=== PATIENT | male | born 1970 | race Caucasian/White ===

== ENCOUNTER → 2020-06-06 13:48 | Outpatient (BNVA) | payer OTHER, SELFPAY | PROVIDERS: PCP Internal Medicine; Referring Provider Internal Medicine; Visit Provider Internal Medicine Pulmonary Disease | DX: J45.30 Mild persistent asthma, uncomplicated (principal); Z91.09 Other allergy status, other than to drugs and biological substances | CPT/HCPCS: Q3014 ==

== ENCOUNTER → 2020-11-01 15:29 | Outpatient (BNVA) | payer OTHER, SELFPAY | PROVIDERS: PCP Internal Medicine; Visit Provider Internal Medicine Pulmonary Disease | DX: J45.30 Mild persistent asthma, uncomplicated (principal); Z91.09 Other allergy status, other than to drugs and biological substances | CPT/HCPCS: Q3014 ==

== ENCOUNTER → 2021-11-14 13:29 | Outpatient (BNVA) | payer OTHER, SELFPAY | PROVIDERS: PCP Internal Medicine; Visit Provider Internal Medicine Pulmonary Disease | DX: J45.30 Mild persistent asthma, uncomplicated (principal); Z91.09 Other allergy status, other than to drugs and biological substances | CPT/HCPCS: 99212 ==

== ENCOUNTER 2023-03-04 14:24 | Outpatient (AMB) | payer OTHER, SELFPAY ==
--- NOTE | 2023-03-04 14:27 | A.OFFVIS_ITS ---
Intake Vital Signs 03/04/23 14:28 Height 5 ft 8 in Weight 156 lb 8.451 oz BMI 23.8 BP 140/80 H Blood Pressure Location Rt brachial Position Sitting Pulse 112 H Pulse Source Doppler Pulse Oximetry (%) 96 Oxygen Delivery Method Room Air Intake Visit Reasons: copd Allergies No Known Allergies Allergy (Verified 03/04/23 14:31) HPI copd HPI Details 52-year-old gentleman, former 25 pack year smoker, quit 2011, followed for allergic [id number] persistent asthma.? He has been using Breo 100, Singulair, and albuterol MDI with excellent control of his underlying symptoms. He denies any recent asthma exacerbations.? He continues and Singulair with good control of his underlying allergies.? No significant changes since his prior visit. [facility] Social History (Updated 03/04/23 @ 14:30 by Blaire Rajan [facility]) Patient Tobacco Use Status: Former Tobacco user Review of Systems Const Denies daytime sleepiness, Denies excessive sweating, Denies fatigue, Denies fever(s), Denies lethargy, Denies malaise, Denies night sweats, Denies snoring and Denies weight loss Eyes Denies blurry vision and Denies itchy eyes ENT Denies nasal congestion, Denies post nasal drip, Denies sinus pain, Denies sinus pressure and Denies other ( Thrush) Card Denies chest pain, Denies pedal edema, Denies dyspnea, Denies orthopnea and Denies paroxysmal nocturnal dyspnea Resp Denies cough, Denies hemoptysis, Denies excessive phlegm production, Denies dyspnea, Denies snoring and Denies wheezing GI Denies abdominal pain and Denies heartburn Musc Denies myalgias, Denies arthralgias and Denies joint swelling Skin/Breast Denies rash Neuro Denies memory loss and Denies seizure-like activity Psych Denies abnormal sleep pattern, Denies anxiety and Denies memory loss Endo Denies excessive sweating, Denies fatigue and Denies heat intolerance Allan/Lymph Denies easy bruising Aller/Immun Denies itchy eyes, Denies seasonal rhinorrhea and Denies wheezing Physical Exam Vital Signs: Last Vital Signs Pulse 112 H 03/04/23 14:28 BP 140/80 H 03/04/23 14:28 Pulse Ox 96 03/04/23 14:28 Oxygen Delivery Method Room Air 03/04/23 14:28 BMI result Body Mass Index 23.8 Const General: no acute distress and alert Nutritional Appearance: not obese Orientation/consciousness: Other orientation findings ( oriented) HEENT Head: Yes atraumatic Eyes General: appearance normal, both eyes and all related structures Sclerae: sclerae normal EOM: EOMs intact bilaterally Neck Neck: Yes supple Lymphatic: no lymphadenopathy noted Resp Effort & Inspection: normal respiratory effort and no use of accessory muscles Auscultation: clear to auscultation bilaterally Cardio Rate: regular rate Rhythm: regular rhythm Heart sounds: no gallops, no murmurs and no rubs Skin General skin exam: other ( warm) Extrem General: No clubbing, No cyanosis and No edema Assessment & Plan Assessment & Plan (1) Mild persistent asthma: Code(s): J45.30 - Mild persistent asthma, uncomplicated Plan: Well controlled on current regimen of Breo and albuterol MDI. Continue current regimen. (2) Environmental allergies: Code(s): Z91.09 - Other allergy status, other than to drugs and biological substances Plan: Well controlled on Singulair. Continue current regimen. Medications: Refilled Breo Ellipta 100-25 mcg/dose (fluticasone furoate-vilanterol) 1 ea PO DAILY 180 ea 4RF NS Coding Level of Care Code Est Pt Level 4 (55401) Diagnoses Mild persistent asthma J45.30 Environmental allergies Z91.09
[2023-03-04 14:28] VITALS: BP 140/80; PULSE 112; O2SAT 96; BMI 23.8
== END 2023-03-04 14:59 | disposition home or self-care (01) ==
PROVIDERS: PCP Internal Medicine; Visit Provider Internal Medicine Pulmonary Disease
DX: J45.30 Mild persistent asthma, uncomplicated (principal); Z91.09 Other allergy status, other than to drugs and biological substances
CPT/HCPCS: 99214

== ENCOUNTER → 2023-03-04 14:24 | Outpatient (BNVA) | payer OTHER, SELFPAY | PROVIDERS: PCP Internal Medicine; Visit Provider Internal Medicine Pulmonary Disease | DX: J45.30 Mild persistent asthma, uncomplicated (principal); Z79.899 Other long term (current) drug therapy; Z91.09 Other allergy status, other than to drugs and biological substances | CPT/HCPCS: 99212 ==

== ENCOUNTER 2024-02-11 10:48 | Outpatient (AMB) | payer OTHER, SELFPAY ==
[2024-02-11 10:52] VITALS: BP 158/78; PULSE 108; O2SAT 96; BMI 23.5
--- NOTE | 2024-02-11 10:52 | MHC.OFFVIS ---
Vital Signs 02/11/24 10:52 Height 5 ft 8 in Weight 154 lb 5.177 oz BMI 23.5 BP 158/78 H Blood Pressure Location Lt brachial Position Sitting Pulse 108 H Pulse Source Doppler Pulse Oximetry (%) 96 Oxygen Delivery Method Nasal Cannula Intake Visit Reasons: copd Allergies No Known Allergies Allergy (Verified 03/04/23 14:31) HPI HPI copd: Details: 53-year-old gentleman, former 25 pack year smoker, quit 2011, followed for allergic [id number] persistent asthma and allergies.? He has been using Breo 100, Singulair, and albuterol MDI with excellent control of his underlying symptoms. He denies any recent asthma exacerbations.? COUNTS INCLUDE 234 BEDS AT THE [facility] Social History (Updated 03/04/23 @ 14:30 by Blaire Rajan [facility]) Patient Tobacco Use Status: Former Tobacco user Review of Systems Const Denies daytime sleepiness, Denies excessive sweating, Denies fatigue, Denies fever(s), Denies lethargy, Denies malaise, Denies night sweats, Denies snoring and Denies weight loss Eyes Denies blurry vision and Denies itchy eyes ENT Denies nasal congestion, Denies post nasal drip, Denies sinus pain, Denies sinus pressure and Denies other ( Thrush) Card Denies chest pain, Denies pedal edema, Denies dyspnea, Denies orthopnea and Denies paroxysmal nocturnal dyspnea Resp Denies cough, Denies hemoptysis, Denies excessive phlegm production, Denies dyspnea, Denies snoring and Denies wheezing GI Denies abdominal pain and Denies heartburn Musc Denies myalgias, Denies arthralgias and Denies joint swelling Skin/Breast Denies rash Neuro Denies memory loss and Denies seizure-like activity Psych Denies abnormal sleep pattern, Denies anxiety and Denies memory loss Endo Denies excessive sweating, Denies fatigue and Denies heat intolerance Allan/Lymph Denies easy bruising Aller/Immun Denies itchy eyes, Denies seasonal rhinorrhea and Denies wheezing Physical Exam Vital Signs: Last Vital Signs Pulse 108 H 02/11/24 10:52 BP 158/78 H 02/11/24 10:52 Pulse Ox 96 02/11/24 10:52 Oxygen Delivery Method Nasal Cannula 02/11/24 10:52 BMI result Body Mass Index 23.5 Const General: no acute distress and alert Nutritional Appearance: not obese Orientation/consciousness: Other orientation findings ( oriented) HEENT Head: Yes atraumatic Eyes General: appearance normal, both eyes and all related structures Sclerae: sclerae normal EOM: EOMs intact bilaterally Neck Neck: Yes supple Lymphatic: no lymphadenopathy noted Resp Effort & Inspection: normal respiratory effort and no use of accessory muscles Auscultation: clear to auscultation bilaterally Cardio Rate: regular rate Rhythm: regular rhythm Heart sounds: no gallops, no murmurs and no rubs Skin General skin exam: other ( warm) Extrem General: No clubbing, No cyanosis and No edema Assessment & Plan Assessment & Plan (1) Mild persistent asthma: Code(s): J45.30 - Mild persistent asthma, uncomplicated Category: Medical Plan: Well controlled on Breo and albuterol MDI. Continue current regimen. (2) Environmental allergies: Code(s): Z91.09 - Other allergy status, other than to drugs and biological substances Category: Medical Plan: Well controlled on Singulair. Continue current regimen. Coding Level of Care Code Est Pt Level 4 (61744) Diagnoses Mild persistent asthma J45.30 Environmental allergies Z91.09
== END 2024-02-11 11:02 | disposition home or self-care (01) ==
PROVIDERS: PCP Internal Medicine; Visit Provider Internal Medicine Pulmonary Disease
DX: J45.30 Mild persistent asthma, uncomplicated (principal); Z91.09 Other allergy status, other than to drugs and biological substances
CPT/HCPCS: 99214

== ENCOUNTER → 2024-02-11 10:48 | Outpatient (BNVA) | payer OTHER, SELFPAY | PROVIDERS: PCP Internal Medicine; Visit Provider Internal Medicine Pulmonary Disease | DX: J44.9 Chronic obstructive pulmonary disease, unspecified (principal); J45.30 Mild persistent asthma, uncomplicated; Z91.09 Other allergy status, other than to drugs and biological substances; Z87.891 Personal history of nicotine dependence | CPT/HCPCS: 99212 ==

== ENCOUNTER 2025-01-19 12:53 | Outpatient (AMB) | payer OTHER, SELFPAY ==
--- NOTE | 2025-01-19 13:04 | A.OFFVIS_ITS ---
Vital Signs 01/19/25 13:05 Height 5 ft 8 in Weight 157 lb BMI 23.9 BP 128/62 Blood Pressure Location Lt brachial Position Sitting Pulse 103 H Pulse Source Pulse Oximeter Pulse Oximetry (%) 95 Oxygen Delivery Method Room Air Intake Visit Reasons: Asthma Allergies No Known Allergies Allergy (Verified 01/19/25 13:07) HPI HPI Asthma: Details: 54-year-old gentleman, former 25 pack year smoker, quit 2011, followed for allergic ezek-[id number] persistent asthma and allergies.? He has been using Breo 100 and albuterol MDI with excellent control of his underlying asthma symptoms. His environmental allergy symptoms are well controlled on Zyrtec. He denies any recent asthma exacerbations.? [facility] Social History (Updated 03/04/23 @ 14:30 by Blaire Rajan [facility]) Patient Tobacco Use Status: Former Tobacco user Review of Systems Const Denies daytime sleepiness, Denies excessive sweating, Denies fatigue, Denies fever(s), Denies lethargy, Denies malaise, Denies night sweats, Denies snoring and Denies weight loss Eyes Denies blurry vision and Denies itchy eyes ENT Denies nasal congestion, Denies post nasal drip, Denies sinus pain, Denies sinus pressure and Denies other ( Thrush) Card Denies chest pain, Denies pedal edema, Denies dyspnea, Denies orthopnea and Denies paroxysmal nocturnal dyspnea Resp Denies cough, Denies hemoptysis, Denies excessive phlegm production, Denies dyspnea, Denies snoring and Denies wheezing GI Denies abdominal pain and Denies heartburn Musc Denies myalgias, Denies arthralgias and Denies joint swelling Skin/Breast Denies rash Neuro Denies memory loss and Denies seizure-like activity Psych Denies abnormal sleep pattern, Denies anxiety and Denies memory loss Endo Denies excessive sweating, Denies fatigue and Denies heat intolerance Allan/Lymph Denies easy bruising Aller/Immun Denies itchy eyes, Denies seasonal rhinorrhea and Denies wheezing Physical Exam Vital Signs: Last Vital Signs Pulse 103 H 01/19/25 13:05 BP 128/62 01/19/25 13:05 Pulse Ox 95 01/19/25 13:05 Oxygen Delivery Method Room Air 01/19/25 13:05 BMI result Body Mass Index 23.9 Const General: no acute distress and alert Nutritional Appearance: not obese Orientation/consciousness: Other orientation findings ( oriented) HEENT Head: Yes atraumatic Eyes General: appearance normal, both eyes and all related structures Sclerae: sclerae normal EOM: EOMs intact bilaterally Neck Neck: Yes supple Lymphatic: no lymphadenopathy noted Resp Effort & Inspection: normal respiratory effort and no use of accessory muscles Auscultation: clear to auscultation bilaterally Cardio Rate: regular rate Rhythm: regular rhythm Heart sounds: no gallops, no murmurs and no rubs Skin General skin exam: other ( warm) Extrem General: No clubbing, No cyanosis and No edema Assessment & Plan Assessment & Plan (1) Mild persistent asthma: Code(s): J45.30 - Mild persistent asthma, uncomplicated Category: Medical Plan: Well controlled on Breo and albuterol MDI. Continue current regimen. (2) Environmental allergies: Code(s): Z91.09 - Other allergy status, other than to drugs and biological substances Category: Medical Plan: Well controlled on Zyrtec. Continue current regimen. Coding Level of Care Code Est Pt Level 4 (31961) Diagnoses Mild persistent asthma J45.30 Environmental allergies Z91.09
[2025-01-19 13:05] VITALS: BP 128/62; PULSE 103; O2SAT 95; BMI 23.9
--- OUTSIDE RECORDS SUMMARY | 2025-01-19 13:05 | XMS_ITS | Clinical Summary ---
Author Organization [facility] Address [address] [place] [address] Care Team Providers Care Mushroom Cultivator Name Role Phone Tia Townsend MD Primary Care Provide r Allergies No known active allergies Medications Medication Sig Dispensed Refills Start Date End Date Status metFORMIN (GLUCOPHAGE) tablet 500 mg Take 1 tablet (500 mg total) by mouth 2 (two) times a day with meals. 0 Active montelukast (SINGULAIR) 10 MG tablet Take 1 tablet (10 mg total) by mouth every night at bedtime. 0 Active fluticasone-vilanterol (BREO ELLIPTA) 100-25 MCG/INH inhaler 1 inhalation. by Inhaled route daily. 0 Active folic acid (FOLVITE) tablet 1 mg Take 1 tablet (1 mg total) by mouth daily. 0 Active vitamin B-12 (CYANOCOBALAMIN) 500 MCG tablet Take 2 tablets (1,000 mcg total) by mouth daily. 0 Active pravastatin (PRAVACHOL) tablet 80 mg Take 1 tablet (80 mg total) by mouth daily. 0 Active Active Problems No known active problems Social History Tobacco Use Types Packs/Day Years Used Date Smoking Tobacco: Former Smokeless Tobacco: Never Alcohol Use Standard Drinks/Week Comments No 0 (1 standard drink = 0.6 oz pur e alcohol) Sex and Gender Information Value Date Recorded Sex Assigned at Not on file Gender Identity Not on file Sexual Orientation Not on file Job Start Date Occupation Industry Not on file Not on file Not on file Last Filed Vital Signs Vital Sign Reading Time Taken Comments Blood Pressure 148/77 01/05/2024 11:33 AM EDT Pulse 92 01/05/2024 11:33 AM EDT Temperature 36.3 C (97.4 F) 01/05/2024 11:33 AM EDT Respiratory Rate - - Oxygen Saturation 98% 01/05/2024 11:33 AM EDT Inhaled Oxygen Concentration - - Weight 72.8 kg (160 lb 9.6 oz) 01/05/2024 11:33 AM EDT Height 170.2 cm (5' 7 ) 06/17/2023 1:34 PM EST Body Mass Index 25.15 06/17/2023 1:34 PM EST Plan of Treatment Health Maintenance Due Date Last Done Comments Hepatitis B Vaccines (1 of 3 - 3-dose series) 1968 Hepatitis C Screening 1968 COVID-19 Vaccine (#1) 1968 Depression Screening 1980 Preventative Health Evaluation 1986 Colon Cancer Screening (Colonoscopy) 2013 DTap / Tdap / Td (2 - Td or Tdap) 05/27/2022 05/27/2012 Influenza Vaccine (#1) 2025 , 05/10/2021, 05/29/2020, Additional history exists Pneumococcal Vaccine (4 of 4 - PPSV23 or PCV20) 2033 08/02/2019, 12/10/2017, 09/22/2016 Shingrix-Zoster Vaccine Completed 02/08/2021, 11/05 RSV Ped < 20 months Aged Out No longe r eligible based on patient's age to complete this topic Care Teams Mushroom Cultivator Relationship Specialty Start Date End Date Tia Townsend MD PCP - General Internal Medicine 07/19/19
--- OUTSIDE RECORDS SUMMARY | 2025-01-19 13:05 | XMS_ITS | Clinical Summary ---
Author Organization [facility] Address [address] [place] [address] Phone Care Team Providers Care Horse And Wagon Driver Name Role Phone Tia Townsend MD Primary Care Provider Allergies No known active allergies Medications cyanocobalamin (VITAMIN B-12) 500 mcg tablet Take 2 tablets (1,000 mcg total) by mouth daily. Active fluticasone furoate-vilante roL (BREO ELLIPTA) 100-25 mcg/dose inhaler 1 inhalation by Inhaled route daily. Active folic acid (FOLVITE) 1 mg tablet Take 1 tablet (1 mg total) by mouth daily. 7 Active montelukast (SINGULAIR) 10 mg tablet Take 1 tablet (10 mg total) by mouth every night at bedtime. Active Jardiance 10 mg tablet Take 1 tablet (10 mg total) by mouth 1 (one) time each day in the morning. 5 Active rosuvastatin (CRESTOR) 10 mg tablet Take 1 tablet (10 mg total) by mouth 1 (one) time each day. 5 Active Active Problems Problem Noted Date Diagnosed Date CML (chronic myelocytic leuk emia) (CMS/HCC V24, CMS/[facility] V28) 05/16/2024 Surgical History Surgery Date Site/Laterality Comments FINGER SURGERY PROCEDURE:FINGER SURGERY OTHER SURGICAL HISTORY PROCEDURE:TOOTH EXTRACTION Medical History Medical History Date Comments Leukemia (CMS/HCC V24, CMS/[facility] V28) DX:Leukemia (HCC) Anxiety DX:Anxiety Diabetes mellitus (CMS/HCC V24, CMS/[facility] V28) DX:Diabetes mellitus (HCC) Hyperlipidemia DX:Hyperlipidemi a Leukocytosis DX:Leukocytosis Thrombocytosis DX:Thrombocytosi s Social History Tobacco Use Types Packs/Day Years Used Date Smoking Tobacco: Former Smokeless Tobacco: Never Tobacco Cessation:Counseling Given: Not Answered Alcohol Use Standard Drinks/Week Comments No 0 (1 standard drink = 0.6 oz pur e alcohol) Sex and Gender Information Value Date Recorded Sex Assigned at Not on file Legal Sex Male 11:45 AM EST Gender Identity Not on file Sexual Orientation Not on file Obstetrics History Last Filed Vital Signs Vital Sign Reading Time Taken Comments Blood Pressure 148/75 08/11/2024 11:17 AM EST Pulse 103 08/11/2024 11:17 AM EST Temperature 37.4 C (99.3 F) 08/11/2024 11:17 AM EST Respiratory Rate - - Oxygen Saturation 97% 08/11/2024 11:17 AM EST Inhaled Oxygen Concentration - - Weight 68 kg (150 lb) 08/11/2024 11:17 AM EST Height 170.2 cm (5' 7 ) 06/17/2023 1:34 PM EST Body Mass Index 23.49 06/17/2023 1:34 PM EST Plan of Treatment Upcoming Encounters Date Type Department Care Team (Late st Contact Info) Description 05/03/2025 11:00 AM EST Office Visit [facility] Hematology Oncology [address] [place] [id number] Carlos Maria MD [address] [place] [address] Health Maintenance Due Date Last Done Comments Diabetes: Annual GFR (Glomerular Filtration Rate) 1968 Diabetes: Annual Foot Exam 1978 Diabetes: Annual Retina Eye Exam 1978 Hepatitis B Vaccines (1 of 3 - 19+ 3-dose series) 1987 Cholesterol Screening (Lipid Panel) 06/05/2022 Colorectal Cancer Screening: Colonoscopy 06/05/2022 HIV Screening 06/05/2022 Hepatitis C Screening 06/05/2022 Social Influencers of Health Screening 06/05/2022 COVID-19 Vaccine ( season) 2024 04/12/2022, 11/14/2021, 05/29/2021, Additional history exists Depression Screening 06/29/2024 Diabetes: Annual Urine Albumin-Creatinine Ratio (uACR) 07/21/2024 Diabetes: Blood Sugar Control Test (HGBA1C) 07/21/2024 Pneumococcal Vaccine: 50+ Years (4 of 4 - PCV20 or PCV21) 08/02/2024 08/02/2019, 12/10/2017, 09/22/2016 Influenza Vaccine (#1) 2025 3, 04/10/2022, 05/10/2021, Additional history exists DTaP,Tdap,and Td Vaccines (4 - Td or Tdap) 10/22/2033 10/23/2023, 05/27/2012, 05/27/2012 Zoster Vaccines Completed 02/08/2021, 11/05/2020 HIB Vaccines Aged Out No longer eligi ble based on patient's age to complete this topic HPV Vaccines Aged Out No longer eligi ble based on patient's age to complete this topic Hepatitis A Vaccines Aged Out No long er eligible based on patient's age to complete this topic IPV Vaccines Aged Out No longer eligi ble based on patient's age to complete this topic MMR Vaccines Aged Out No longer eligi ble based on patient's age to complete this topic Meningococcal ACWY Vaccine Aged Out N o longer eligible based on patient's age to complete this topic Meningococcal B Vaccine Aged Out No l onger eligible based on patient's age to complete this topic RSV Immunization Patients Under 20 months Aged Out No longer eligible based on patient's age to complete this topic Varicella Vaccines Aged Out No longer eligible based on patient's age to complete this topic Insurance [facility] Care Teams Horse And Wagon Driver Relationship Specialty Start Date End Date Tia Townsend MD [address] [place] [address] PCP - General Internal Medicine 05/01/18
== END 2025-01-19 13:36 | disposition home or self-care (01) ==
LOC: HO.HPS 12:54
PROVIDERS: PCP Internal Medicine; Visit Provider Internal Medicine Pulmonary Disease
DX: J45.30 Mild persistent asthma, uncomplicated (principal); Z91.09 Other allergy status, other than to drugs and biological substances
CPT/HCPCS: 99214

== ENCOUNTER → 2025-01-19 12:53 | Outpatient (BNVA) | payer OTHER, SELFPAY | PROVIDERS: PCP Internal Medicine; Visit Provider Internal Medicine Pulmonary Disease | DX: J45.30 Mild persistent asthma, uncomplicated (principal); Z91.09 Other allergy status, other than to drugs and biological substances | CPT/HCPCS: 99212 ==

== ENCOUNTER 2025-06-15 10:58 | Outpatient (AMB) | payer OTHER, SELFPAY ==
[2025-06-15 11:00] VITALS: BP 118/64; PULSE 111; O2SAT 94; BMI 23.1
--- NOTE | 2025-06-15 11:00 | MHC.OFFVIS ---
Vital Signs 06/15/25 11:00 Height 5 ft 8 in Weight 152 lb BMI 23.1 BP 118/64 Blood Pressure Location Lt brachial Position Sitting Pulse 111 H Pulse Source Pulse Oximeter Pulse Oximetry (%) 94 Oxygen Delivery Method Room Air Intake Visit Reasons: shortness of breath with exertion Allergies prednisone Adverse Reaction (Intermediate, Verified 06/15/25 11:34) feet swelling HPI HPI shortness of breath with exertion: Details: 54-year-old gentleman, former 25 pack year smoker, quit 2011, followed for allergic peoe-tc-roerzsar persistent asthma and allergies.? He has been using Breo 100 and albuterol MDI with excellent control of his underlying asthma symptoms. His environmental allergy symptoms are well controlled on Zyrtec at baseline. Over the last months patient had developed what appears to be pneumonia with only partial response to an initial course of Levaquin. [facility] Social History (Updated 03/04/23 @ 14:30 by Blaire Rajan [facility]) Patient Tobacco Use Status: Former Tobacco user Review of Systems Const Denies daytime sleepiness, Denies excessive sweating, Denies fatigue, Denies fever(s), Denies lethargy, Denies malaise, Denies night sweats, Denies snoring and Denies weight loss Eyes Denies blurry vision and Denies itchy eyes ENT Denies nasal congestion, Denies post nasal drip, Denies sinus pain, Denies sinus pressure and Denies other ( Thrush) Card Denies chest pain, Denies pedal edema, Denies dyspnea, Reports dyspnea on exertion, Denies orthopnea and Denies paroxysmal nocturnal dyspnea Resp Denies cough, Denies hemoptysis, Denies excessive phlegm production, Denies dyspnea, Reports dyspnea on exertion, Denies snoring and Denies wheezing GI Denies abdominal pain and Denies heartburn Musc Denies myalgias, Denies arthralgias and Denies joint swelling Skin/Breast Denies rash Neuro Denies memory loss and Denies seizure-like activity Psych Denies abnormal sleep pattern, Denies anxiety and Denies memory loss Endo Denies excessive sweating, Denies fatigue and Denies heat intolerance Allan/Lymph Denies easy bruising Aller/Immun Denies itchy eyes, Denies seasonal rhinorrhea and Denies wheezing Physical Exam Vital Signs: Last Vital Signs Pulse 111 H 06/15/25 11:00 BP 118/64 06/15/25 11:00 Pulse Ox 94 06/15/25 11:00 Oxygen Delivery Method Room Air 06/15/25 11:00 BMI result Body Mass Index 23.1 Const General: no acute distress and alert Nutritional Appearance: not obese Orientation/consciousness: Other orientation findings ( oriented) HEENT Head: Yes atraumatic Eyes General: appearance normal, both eyes and all related structures Sclerae: sclerae normal EOM: EOMs intact bilaterally Neck Neck: Yes supple Lymphatic: no lymphadenopathy noted Resp Effort & Inspection: normal respiratory effort and no use of accessory muscles Auscultation: clear to auscultation bilaterally Cardio Rate: regular rate Rhythm: regular rhythm Heart sounds: no gallops, no murmurs and no rubs Skin General skin exam: other ( warm) Extrem General: No clubbing, No cyanosis and No edema Assessment & Plan Assessment & Plan (1) Mild persistent asthma: Code(s): J45.30 - Mild persistent asthma, uncomplicated Category: Medical Plan: Baseline controlled on Breo and albuterol MDI. Continue current regimen. (2) Environmental allergies: Code(s): Z91.09 - Other allergy status, other than to drugs and biological substances Category: Medical Plan: Baseline controlled on Zyrtec and Singulair. Continue current regimen. (3) Pneumonia: Code(s): J18.9 - Pneumonia, unspecified organism Category: Medical Plan: Community-acquired pneumonia with partial response to initial course of Levaquin, will repeat course of Levaquin. Medications: Refilled levofloxacin 750 mg PO DAILY 7 tabs 0RF Coding Level of Care Code Est Pt Level 4 (59497) Add On Problem Visit Only Diagnoses Mild persistent asthma J45.30 Environmental allergies Z91.09 Pneumonia J18.9
--- OUTSIDE RECORDS SUMMARY | 2025-06-15 14:17 | XMS_ITS | Clinical Summary ---
Author Organization [facility] Prior to 11/26/24 Address [address] [place] [address] Care Team Providers Care Life Skills Coordinator Name Role Phone Tia Townsend MD Primary [...] age to complete this topic Care Teams Life Skills Coordinator Relationship Specialty Start Date End Date Tia Townsend MD PCP - General Internal Medicine 07/19/19
--- OUTSIDE RECORDS SUMMARY | 2025-06-15 14:17 | XMS_ITS | Clinical Summary ---
Author Organization [facility] Address [address] [place] [address] Phone Care Team Providers Care Pit Clerk Name Role Phone Tia Townsend MD Primary Care Provider + [phone] Allergies No known active allergies Medications cyanocobalamin [...] Noted Date Diagnosed Date CML (chronic myelocytic leukemia) 05/16/2024 Encounters Date Type Department Care Team Description 05/03/2025 11:00 AM EST Office Visit [facility] Hematology Oncology [address] [place] [phone] Carlos Maria MD CML (chronic myelocytic leukemia) (CMS/HCC V24, CMS/HCC V28) (Primary Dx) 04/03/2025 Telephone [facility] Hematology Oncology [address] [place] [phone] Carlos Maria MD from Last 3 Months Surgical History Surgery Date Site/Laterality Comments FINGER SURGERY PROCEDURE:FINGER SURGERY OTHER SURGICAL HISTORY PROCEDURE:TOOTH EXTRACTION Medical History Medical History Date Comments Leukemia ([facility]/HCC V24, CMS/HCC V28) DX:Leukemia (HCC) Anxiety DX:Anxiety Diabetes mellitus (CMS/HCC V24, CMS/HCC V28) DX:Diabetes mellitus (HCC) Hyperlipidemia DX:Hyperlipidemi a [...] on file Sexual Orientation Not on file Last Filed Vital Signs Vital Sign Reading Time Taken Comments Blood Pressure 155/85 05/03/2025 11:01 AM EST Pulse 102 05/03/2025 11:01 AM EST Temperature 36.4 C (97.6 F) 05/03/2025 11:01 AM EST Respiratory Rate - - Oxygen Saturation 98% 05/03/2025 11:01 AM EST Inhaled Oxygen Concentration - - Weight 69.9 kg (154 lb) 05/03/2025 11:01 AM EST Height 170.2 cm (5' 7 ) 06/17/2023 1:34 PM EST Body Mass Index 24.12 06/17/2023 1:34 PM EST Plan of Treatment Upcoming Encounters Date Type Department Care Team (Late st Contact Info) Description 05/03/2026 11:15 AM EST Office Visit [facility] Hematology Oncology [address] [place] [phone] Carlos Maria MD [address] [place] [address] Health Maintenance Due Date Last Done Comments Colorectal Cancer Screening: Colonoscopy 1968 Diabetes: Annual GFR (Glomerular Filtration Rate) 1968 Diabetes: Annual Foot Exam 1978 Diabetes: Annual Retina Eye Exam 1978 Hepatitis B Vaccines (1 of 3 - 19+ 3-dose series) 1987 RSV Immunization Adult Patients (1 - Risk 50-74 years 1-dose series) 2018 Cholesterol Screening (Lipid Panel) 06/05/2022 HIV Screening 06/05/2022 Hepatitis C Screening 06/05/2022 Social Influencers of Health Screening 06/05/2022 Depression Screening 06/29/2024 Diabetes: Annual Urine Albumin-Creatinine Ratio (uACR) 07/21/2024 Diabetes: Blood Sugar Control Test (HGBA1C) 07/21/2024 COVID-19 Vaccine ( season) 2025 04/12/2022, 11/14/2021, 05/29/2021, Additional history exists Influenza Vaccine (#1) 2025 , 04/10/2022, 05/10/2021, Additional history exists DTaP,Tdap,and Td Vaccines (4 - Td or Tdap) 10/22/2033 10/23/2023, 05/27/2012, 05/27/2012 Zoster Vaccines Completed 02/08/2021, 11/05/2020 Pneumococcal Vaccine: 50+ Years Completed 12/20/2024, 08/02/2019, 12/10/2017, Additional history exists HIB Vaccines Aged Out No longer eligi [...] on patient's age to complete this topic Procedures Procedure Name Priority Date/Time Associated Diagnosis Comments CBC WITH AUTO DIFFERENTIAL Routine 04/19/2025 1:02 PM EDT CML (chronic myelocytic leukemia) ([facility] [place], [facility] V28) BCR ABL1 KINASE PCR, QUANTITATIVE Routine 04/19/2025 1:02 PM EDT CML (chronic myelocytic leukemia) ([facility] [place], [facility] V28) CBC AND DIFFERENTIAL Routine 04/19/2025 1:02 PM EDT CML (chronic myelocytic leukemia) ([facility] [place], [facility] V28) from Last 3 Months Results * BCR ABL1 kinase molecular study, quantitative (04/19/2025 1:02 PM EDT) [facility] Scan Result See Scanned Result 04/27/2025 11:40 AM EDT EXTERNAL LAB (NON-INTERFAC ED) Blood Venous blood specimen / Unknown Venipuncture / Unknown 04/19/2025 1:02 PM EDT 04/19/2025 1:36 PM EDT Carlos Maria MD LAB MOLECULAR DIAGNOSTICS OR DERABLES Final Result EXTERNAL LAB (NON-INTERFACED) * (ABNORMAL) CBC auto differential (04/19/2025 1:02 PM EDT) [facility] WBC 5.6 4.8 - 10.8 K/mcL LAB HEMETOLOGY METHOD 04/19/2025 1:51 PM EDT [facility] RBC 4.60 4.50 - 5.50 M/mcL LAB HEMETOLOGY METHOD 04/19/2025 1:51 PM EDT [facility] Hemoglobin 13.3(L) 13.5 - 17.5 g/dL LAB HEMETOLOGY METHOD 04/19/2025 1:51 PM EDT [facility] Hematocrit 40.5(L) 42.0 - 54.0 % LAB HEMETOLOGY METHOD 04/19/2025 1:51 PM EDT [facility] MCV 88.8 79.0 - 98.0 FL LAB HEMETOLOGY METHOD 04/19/2025 1:51 PM EDT [facility] MCH 29.2 27.0 - 32.0 pcg LAB HEMETOLOGY METHOD 04/19/2025 1:51 PM EDT [facility] MCHC 32.8 32.0 - 37.0 g/dL LAB HEMETOLOGY METHOD 04/19/2025 1:51 PM EDT [facility] RDW 13.7 11.0 - 15.0 % LAB HEMETOLOGY METHOD 04/19/2025 1:51 PM T [facility] Platelets 272 130 - 400 K/mcL LAB HEMETOLOGY METHOD 04/19/2025 1:51 PM [facility] MPV 10.3 7.0 - 11.0 FL LAB HEMETOLOGY METHOD 04/19/2025 1:51 PM EDT [facility] NRBC 0.0 <1.0 % LAB HEMETOLOGY METHOD 04/19/2025 1:51 PM T [facility] NRBC Absolute 0.00 <0.10 K/mcL LAB HEMETOLOGY METHOD 04/19/2025 1:51 PM [facility] Neutrophils Relative 45.3 % [facility] Lymphocytes Relative 31.2 % LAB HEMETOLOGY METHOD 04/19/2025 1:51 PM EDT [facility] Monocytes Relative 15.4 % [facility] Eosinophils Relative 6.5 % [facility] Basophils Relative 1.4 % LAB HEMETOLOGY METHOD 04/19/2025 1:51 PM EDT [facility] Immature Granulocytes Relative 0.2 % LAB HEMETOLOGY METHOD 04/19/2025 1:51 PM EDT [facility] Neutrophils Absolute 2.52 1.50 - 7.00 K/mcL LAB HEMETOLOGY METHOD 04/19/2025 1:51 PM EDT [facility] Lymphocytes Absolute 1.74 1.00 - 5.00 K/mcL LAB HEMETOLOGY METHOD 04/19/2025 1:51 PM EDT [facility] Monocytes Absolute 0.86 0.20 - 1.00 K/mcL LAB HEMETOLOGY METHOD 04/19/2025 1:51 PM EDT [facility] Eosinophils Absolute 0.36 0.00 - 0.50 K/mcL LAB HEMETOLOGY METHOD 04/19/2025 1:51 PM EDT [facility] Basophils Absolute 0.08 0.00 - 0.20 K/mcL LAB HEMETOLOGY METHOD 04/19/2025 1:51 PM EDT [facility] Immature Granulocytes Absolute 0.01 0.00 - 0.03 K/mcL LAB HEMETOLOGY METHOD 04/19/2025 1:51 PM EDT [facility] Blood Venous blood specimen / Unknown Venipuncture / Unknown 04/19/2025 1:02 PM EDT 04/19/2025 1:36 PM EDT Carlos Maria MD LAB BLOOD ORDERABLES Final R esult [facility] [address] [place] [address], from Last 3 Months Insurance [employer] Care Teams Pit Clerk Relationship Specialty Start Date End Date Tia Townsend MD [address] [place] [phone] PCP - General Internal Medicine 05/01/18
== END 2025-06-15 11:20 | disposition home or self-care (01) ==
LOC: HO.HPS 10:59
PROVIDERS: PCP Internal Medicine; Visit Provider Internal Medicine Pulmonary Disease
DX: J45.30 Mild persistent asthma, uncomplicated (principal); Z91.09 Other allergy status, other than to drugs and biological substances; J18.9 Pneumonia, unspecified organism
CPT/HCPCS: 99214

== ENCOUNTER → 2025-06-15 10:58 | Outpatient (BNVA) | payer OTHER, SELFPAY | PROVIDERS: PCP Internal Medicine; Visit Provider Internal Medicine Pulmonary Disease | DX: J45.30 Mild persistent asthma, uncomplicated (principal); J18.9 Pneumonia, unspecified organism; Z91.09 Other allergy status, other than to drugs and biological substances; Z87.891 Personal history of nicotine dependence; Z79.899 Other long term (current) drug therapy | CPT/HCPCS: 99212 ==